=== PATIENT | female | born 1990 | race Caucasian/White ===

== ENCOUNTER 2017-10-18 09:09 | Emergency (ER) | payer OTHER ==
[~2017-10-18] VITALS: Ht 167.6 cm; Wt 91.7 kg
[~2017-10-18 09:09] MED LIST: PEDICHW50 PO
[2017-10-18 09:11] VITALS: Ht 167.6 cm; Wt 91.7 kg
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
[2017-10-18 11:16] VITALS: BP 129/88; PULSE 79; TEMP 36.9; O2SAT 98
== END 2017-10-18 11:10 | disposition home or self-care (01) ==
LOC: C.EDB 09:10
DX: S20.212A Contusion of left front wall of thorax, initial encounter (principal); S00.81XA Abrasion of other part of head, initial encounter; V47.5XXA Car driver injured in collision with fixed or stationary object in traffic accident, initial encounter

== ENCOUNTER 2018-02-25 02:58 | Emergency (ER) | payer OTHER ==
[~2018-02-25] VITALS: Ht 165.1 cm; Wt 81.8 kg
[2018-02-25 02:59] VITALS: Ht 165.1 cm; Wt 81.8 kg
[2018-02-25] MEDS ORDERED: ONDANSETRON 4MG OD TAB ONE (03:05)
[2018-02-25] MEDS ORDERED: ONDANSETRON 4MG OD TAB PO ONE (03:15)
[2018-02-25] MEDS ORDERED: ONDANSETRON HOME PACK 4MG OD TAB PO ONE (03:15)
--- NOTE | 2018-02-25 03:35 | EMERGENCY ROOM VISIT NOTE ---
History First contact with patient: 03:00 Chief Complaint: DIZZY Stated Complaint: DIZZY, LIGHT HEADED Nursing Triage Summary: dizzy lightheadedness upon site of blood History of Present Illness The patient is a 27 year old female who presents to the Emergency Room with complaints of nausea and feeling lightheaded and nearly passing out after seeing blood while at work. Patient states she is a [employer] and she was on a 1 and 1 when the nurses drawing the blood and then she got lightheaded and nearly passed out. Patient states this is happened to her before. Patient states she feels much better now besides feeling slightly nauseous. Patient denies chest pain, dyspnea, passing out, headache, neck stiffness, vomiting, diarrhea, localized weakness. No other concerns per patient. This was a work-related problem. Review of Systems An 10 system review of systems was completed with positives and pertinent negatives listed in the HPI. Past Medical/Surgical History Medical Problems: (1) 34 weeks gestation of (2) Premature uterine contractions in third trimester, antepartum (3) Twins Social History Smoking Status: Never Smoker Alcohol Use: none Drug Use: none Housing Status: lives with family Occupation Status: employed Current/Historical Medications No Active Prescriptions or Reported Meds Physical Exam Vital Signs Date Time Temp Pulse Resp B/P (MAP) Pulse Ox O2 Delivery O2 Flow Rate FiO2 02/25/18 02:59 36.6 68 18 102/80 94 Room Air Physical Exam VITALS: Vitals are noted on the nurse's note and reviewed by myself. Vital signs stable. GENERAL: Pleasant female drinking, in no acute distress, nondiaphoretic, well- developed well-nourished. SKIN: The skin was without rashes, erythema, edema, or bruising. There is no tenting of the skin. Capillary reflex less than 2 seconds. HEAD: Normocephalic atraumatic. EARS: External auditory canals clear, tympanic membranes pearly benjamin without erythema or effusion bilaterally. EYES: Pupils equal round and reactive to light and accommodation. Conjunctivae without injection, sclerae without icterus. Extraocular movements intact. NOSE: Patent, turbinates without inflammation or discharge. MOUTH: Mucous membranes moist. Pharynx without erythema or exudate. Uvula midline. Airway patent. Tongue does not deviate. NECK: Supple without nuchal rigidity. No lymphadenopathy. No thyromegaly. Cervical spine is nontender. No JVD. HEART: Regular rate and rhythm without murmurs gallops or rubs. LUNGS: Clear to auscultation bilaterally without wheezes, rales or rhonchi. No retractions or accessory muscle use. ABDOMEN: Positive bowel sounds x 4. Normal tympanic percussion. Soft, nontender, without masses or organomegaly. Hernandez sign negative. No guarding or rebound tenderness. MUSCULOSKELETAL: No muscle atrophy, erythema, or edema noted. NEURO: Patient was alert and oriented to person place and time. Normal sensation to light and sharp touch. No focal neurological deficits. Medical Decision & Procedures Medications Administered Medications (Trade) Dose Ordered Sig/Steffanie Route Start Time Stop Time Status Last Admin Dose Admin Ondansetron HCl (Zofran Odt) 4 mg ONE ONCE PO 02/25/18 03:15 02/25/18 03:16 DC 02/25/18 03:07 4 MG Ondansetron HCl (ZOFRAN ODT 4MG Home Pack) 1 homepack UD ONCE PO 02/25/18 03:15 02/25/18 03:16 DC 02/25/18 03:09 1 HOMEPACK ED Course Prior records/ancillary studies reviewed. Triage Nursing notes reviewed. Additional history obtained from nursing staff The patient's history was concerning for near syncope. Differential diagnosis: Etiologies such as vasovagal event, infection, hypoglycemia, electrolyte abnormalities, cardiac sources, intracerebral event, toxicologic, neurologic, as well as others were entertained. Physical examination: Patient is alert, oriented and well-appearing ER treatment provided: IV hydration with normal saline On reassessment the patient felt better. Diagnostics interpretation by me: Deferred This appears to be consistent with near syncope from exposure to blood most likely vagal in etiology. Patient was offered blood work and declined. I felt was reasonable. She did not pass out. This has happened to her before. She felt 100% and requested to leave. Patient was tolerating fluids and was neurovascularly and neurologically intact. She did not have acute abdomen on exam. She has stable vital signs. She is advised to rest, stay well-hydrated and follow-up family care in a few days here in the ER sooner for chest pain, difficulty breathing, passing out, worsening signs or symptoms or as needed.. By the evaluation outlined above emergent etiologies such as infection, hypoglycemia, electrolyte abnormalities, cardiac sources, intracerebral event, toxicologic, neurologic,as well as others were deemed relatively unlikely. The pt informed about the findings as listed above. All questions were answered and pleased with the treatment. Return instructions were outlined and the patient was discharged in stable condition. Outpatient prescription management: Zofran Referral: The patient was referred back to their primary care physician for follow-up in 2 to 3 days for a recheck of the current condition. The chart was completed utilizing [employer] Speech voice recognition software. Grammatical errors, random word insertions, pronoun errors, and incomplete sentences are an occassional consequence of this system due to software limitations, ambient noise, and hardware issues. Any formal questions or concerns about the content, text, or information contained within the body of this dictation should be directly addressed to the physician social research assistant for clarification. Medical Decision As above Medication Reconcilliation Current Medication List: was personally reviewed by me Blood Pressure Screening Patient's blood pressure: Normal blood pressure Impression Primary Impression: Vasovagal near syncope Additional Impression: Work related injury Departure Information Dispostion Home / Self-Care Condition GOOD Prescriptions No Active Prescriptions or Reported Meds Referrals No Doctor, Assigned (PCP) Patient Instructions [facility] Additional Instructions Zofran(odansetron) tablets 4mg: Take one and allow it to dissolve in your mouth every four to six hours as needed for nausea or vomiting. Rest and drink plenty of fluids as tolerated. Slow sips of water or sports drinks are recommended instead of large amounts all at once. Continue current medications. Return to the ER for past out, vomiting, fevers, abdominal pain, chest pains, difficulty breathing, worsening of your condition, or as needed. Follow up with your primary physician in 2-3 days for a recheck of your current condition. Problem Qualifiers
[2018-02-25 03:39] VITALS: BP 114/72; PULSE 60; TEMP 36.8; O2SAT 98
== END 2018-02-25 03:45 | disposition home or self-care (01) ==
LOC: C.EDB 02:59
DX: R55 Syncope and collapse (principal); R11.0 Nausea; R42 Dizziness and giddiness; Y99.0 Civilian activity done for income or pay

== ENCOUNTER 2018-05-25 22:48 | Emergency (ER) | payer OTHER ==
[~2018-05-25] VITALS: Ht 165.1 cm; Wt 102.9 kg
[2018-05-25 22:50] VITALS: TEMP 37.3; Ht 165.1 cm; Wt 102.9 kg
[2018-05-25] MEDS ORDERED: SODIUM CHLORIDE 0.9% 1000ML 1,000 ML IV STA (23:02)
--- NOTE | 2018-05-25 23:08 | EMERGENCY ROOM VISIT NOTE ---
History Report prepared by Gisselle: Zachery Dee Under the Supervision of: Dr. Lonnie Tejeda M.D. First contact with patient: 22:54 Chief Complaint: CARDIAC ASSESSMENT Stated Complaint: CHEST PAIN, SOB, HIGH PULSE History of Present Illness The patient is a 27 year old female who presents to the Emergency Room for evaluation of chest pain. 3 days gradually worsening chest pains. Notes today significantly short of breath with difficulty ambulating due to shob. Associated with palpitations and heart racing. Notes symptoms worse with ambulation. Symptoms worse with deep inspiration. Rest seems to makes symptoms better. Sitting up does not change pain. No leg swelling, fevers, chills, cough, nausea, vomiting, abdominal pain, back pain, urinary symptoms. Denies estrogen use, PE/DVT history, family DVT/PE history, recent travel, recent surgery. No cardiac history. Father with Afib. She has taken no medications for this. No recent URI nor gastroenteritis. Source of History: patient Onset: 3 days Position: chest Timing: worsening (gradually) Modifying Factors (Worsening): breathing (deep), other (walking) Modifying Factors (Relieving): rest Associated Symptoms: + SOB, No fevers, No chills, No cough, No nausea, No vomiting, No abdominal pain, No back pain, No urinary symptoms Note: Associated symptoms; palpitations, heart racing Review of Systems See HPI for pertinent positives & negatives. A total of 10 systems reviewed and were otherwise negative. Past Medical & Surgical Medical Problems: (1) 34 weeks gestation of (2) Premature uterine contractions in third trimester, antepartum (3) Twins Family History FHx: atrial fibrillation Social History Smoking Status: Never Smoker Alcohol Use: none Drug Use: none Housing Status: lives with family Occupation Status: employed Current/Historical Medications Scheduled Omeprazole (Omeprazole), 1 TAB PO DAILY Scheduled PRN Ibuprofen (Motrin), 600 MG PO TID PRN for Pain Ibuprofen Tab (Advil), 800 MG PO DIRECTED PRN for Pain Allergies Coded Allergies: No Known Allergies (Unverified , 05/25/18) Physical Exam Vital Signs Date Time Temp Pulse Resp B/P (MAP) Pulse Ox O2 Delivery O2 Flow Rate FiO2 05/26/18 01:54 92 20 108/72 97 Room Air 05/26/18 00:16 97 20 99/63 98 Room Air 05/25/18 23:24 Room Air 05/25/18 23:16 107 05/25/18 22:50 37.3 130 18 123/85 94 Room Air Physical Exam GENERAL: Patient is uncomfortable appearing and in mild distress. EYES: No scleral icterus, unremarkable pupils. ENT: Mucous membranes moist, no nasal congestion. NECK: No masses appreciated, no meningismus, trachea is midline. RESPIRATORY: No dyspnea. Clear to auscultation and equal bilaterally. No wheeze , no rhonchi. CARDIOVASCULAR: Tachycardic. No murmurs, rubs, gallops appreciated. GASTROINTESTINAL: Abdomen soft, nontender, no peritonitis. Bowel sounds positive. No masses appreciated. BACK: No midline tenderness, no CVA tenderness EXTREMITIES: Normal motion all extremities, no cyanosis, no edema. NEUROLOGIC: Alert and oriented, no acute motor or sensory deficits, no focal weakness, cranial nerves grossly intact. SKIN: No rash, no jaundice, no diaphoresis. Medical Decision & Procedures ER Provider Diagnostic Interpretation: Stat Rad Radiology results and stated below per my review and radiologist interpretation: CTA CHEST: No evidence of PE. Lungs are clear. No pleural effusion or pneumothorax. Heart size is normal. Aorta is unremarkable. No pericardial effusion. No significant mediastinal adenopathy. Radiologist: Kwan Erickson MD Laboratory Results 05/25/18 23:00 Red Blood Count 4.79, Mean Corpuscular Volume 82.3, Mean Corpuscular Hemoglobin 27.6, Mean Corpuscular Hemoglobin Concent 33.5, Mean Platelet Volume 11.0, Neutrophils (%) (Auto) 84.7, Lymphocytes (%) (Auto) 8.1, Monocytes (%) (Auto) 6.9, Eosinophils (%) (Auto) 0.1, Basophils (%) (Auto) 0.1, Neutrophils # (Auto) 6.85, Lymphocytes # (Auto) 0.66, Monocytes # (Auto) 0.56, Eosinophils # (Auto) 0.01, Basophils # (Auto) 0.01 05/25/18 23:00 Test 05/25/18 23:00 05/25/18 23:19 White Blood Count 8.10 K/uL (4.8-10.8) Red Blood Count 4.79 M/uL (4.2-5.4) Hemoglobin 13.2 g/dL (12.0-16.0) Hematocrit 39.4 % (37-47) Mean Corpuscular Volume 82.3 fL (80-100) Mean Corpuscular Hemoglobin 27.6 pg (25-34) Mean Corpuscular Hemoglobin Concent 33.5 g/dl (32-36) Platelet Count 211 K/uL (130-400) Mean Platelet Volume 11.0 fL (7.4-10.4) Neutrophils (%) (Auto) 84.7 % Lymphocytes (%) (Auto) 8.1 % Monocytes (%) (Auto) 6.9 % Eosinophils (%) (Auto) 0.1 % Basophils (%) (Auto) 0.1 % Neutrophils # (Auto) 6.85 K/uL (1.4-6.5) Lymphocytes # (Auto) 0.66 K/uL (1.2-3.4) Monocytes # (Auto) 0.56 K/uL (0.11-0.59) Eosinophils # (Auto) 0.01 K/uL (0-0.5) Basophils # (Auto) 0.01 K/uL (0-0.2) RDW Standard Deviation 41.7 fL (36.4-46.3) RDW Coefficient of Variation 13.8 % (11.5-14.5) Immature Granulocyte % (Auto) 0.1 % Immature Granulocyte # (Auto) 0.01 K/uL (0.00-0.02) Erythrocyte Sedimentation Rate 37 mm/hr (0-21) Est Creatinine Clear Calc Drug Dose 126.3 ml/min Estimated GFR () 117.0 Estimated GFR (Non- 100.9 BUN/Creatinine Ratio 15.0 (10-20) Calcium Level 8.8 mg/dl (8.5-10.1) Magnesium Level 2.0 mg/dl (1.8-2.4) Total Creatine Kinase 101 U/L (26-192) Creatine Kinase MB < 1.0 ng/ml (0.5-3.6) Creatine Kinase MB Ratio (0-3.0) Troponin I < 0.015 ng/ml (0-0.045) C-Reactive Protein 4.94 mg/dl (0-0.29) Thyroid Stimulating Hormone (TSH) 3.240 uIu/ml (0.300-4.500) Lyme Disease IgG Antibody NEG (NEG) Lyme Disease IgM Antibody NEG (NEG) Bedside Hemoglobin 13.3 g/dl (12.0-16.0) Bedside Hematocrit 39 % (37-47) Bedside Sodium 139 mEq/L (135-144) Bedside Potassium 3.5 mEq/L (3.3-5.0) Bedside Chloride 102 mEq/L (101-112) Bedside Total CO2 22 mEq/l (24-31) Anion Gap 19.0 mmol/L (16-25) Bedside Blood Urea Nitrogen 11 mg/dl (7-18) Bedside Creatinine 0.7 mg/dl (0.6-1.3) Bedside Glucose (other) 111 mg/dl (70-99) Bedside Ionized Calcium (Kala) 1.11 mmol/l (1.12-1.32) Laboratory results as reviewed by me. Medications Administered Medications (Trade) Dose Ordered Sig/Steffanie Route Start Time Stop Time Status Last Admin Dose Admin Sodium Chloride 1,000 ml @ 999 mls/hr Q1H1M STAT IV 05/25/18 23:02 05/26/18 00:02 DC 05/25/18 23:19 999 MLS/HR Ketorolac Tromethamine (Toradol Inj) 30 mg NOW STAT IV 05/26/18 00:22 05/26/18 00:23 DC 05/26/18 00:33 30 MG ECG Per My Interpretation Indication: chest pain Rate (beats per minute): 113 Rhythm: sinus tachycardia Findings: ST depression (Anterolateral), T-wave inversion (Anterolateral) Comparison ECG Date: no prior available ED Course 2256: The patient was evaluated in room A10. A complete history and physical exam was performed. 2328: I reevaluated the patient. Her heart rate is coming down with fluids. It is currently 107. She is going to CT. 0004: I reevaluated the patient. Her heart rate is in the 90s, and she feels better now. She is awaiting her CT results. 0113: I reevaluated the patient. She feels much better after the Toradol and fluids. Medical Decision Differential: NSR, SVT, PACs, PVCs, Cardiac Dysrhythmia, Endocrine Dysfunction, Electrolyte/Metabolic Abnormality, Pulmonary Embolism, Infectious, GI, amonst other pathologies entertained. 27 yr old female arrives for evaluation of chest pain with pleuritic shortness of breath and found to have ST depressions with some T wave inversions on EKG. No evidence of heart failure by exam. Symptoms ongoing for 3 days now. She is somewhat tachy for which IV fluids give with improvement. Trop negative thus with 3 days symptoms I feel that this is not ACS. With symptoms and EKG findings I did not feel that dimer appropriate and went with CT PE which was fortunately negative without report of pericardial effusion. She is breathing comfortably and HR improved. Toradol given with improvement in pain. EKG with improvement on repeat. She is well appearing, wants to go home and in no distress. This seems consistent with pericarditis though we discussed importance of RTED if worsening or other concerns. Stable and feels well at discharge. Aware she must follow up with PCP. Head Trauma GCS Score: 15 Medication Reconcilliation Current Medication List: was personally reviewed by me Blood Pressure Screening Patient's blood pressure: Normal blood pressure Blood pressure disposition: Did not require urgent referral Impression Primary Impression: Pericarditis Scribe Attestation The scribe's documentation has been prepared under my direction and personally reviewed by me in its entirety. I confirm that the note above accurately reflects all work, treatment, procedures, and medical decision making performed by me. Departure Information Dispostion Home / Self-Care Prescriptions Omeprazole (OMEPRAZOLE) 20 Mg Tab 1 TAB PO DAILY for 30 Days, #30 TAB 1 Refill Prov: Lonnie Tejeda M.D. 05/26/18 Ibuprofen (Motrin) 600 Mg Tab 600 MG PO TID Y for Pain for 7 Days, #21 TAB With Food Prov: Lonnie Tejeda M.D. 05/26/18 Referrals No Doctor, Assigned (PCP) Patient Instructions My [facility], Pericarditis Additional Instructions Take Motrin 3 times daily for next several days and then decrease is no further discomfort. Return if severe chest pain, difficulty breathing, passing out or other concerns. We are always here to help. It is important you follow up with your primary care provider in next several days for recheck.
[2018-05-25 23:25] LABS: BASO % 0.1 %; BASO ABS # 0.01 K/uL (0-0.2); EOS % 0.1 %; EOS ABS # 0.01 K/uL (0-0.5); HEMATOCRIT 39.4 % (37-47); HEMOGLOBIN 13.2 g/dL (12.0-16.0); IG# 0.01 K/uL (0.00-0.02); LYMPH % 8.1 %; LYMPH ABS # 0.66 K/uL (1.2-3.4); MEAN CELL VOLUME 82.3 fL (80-100); MEAN CORPUSCULAR HEMOGLOBIN 27.6 pg (25-34); MEAN CORPUSCULAR HGB CONC 33.5 g/dl (32-36); MONO % 6.9 %; MONO ABS # 0.56 K/uL (0.11-0.59); NEUT % 84.7 %; NEUT ABS # 6.85 K/uL (1.4-6.5); PLATELET COUNT 211 K/uL (130-400); RED CELL DISTRIBUTION WIDTH CV 13.8 % (11.5-14.5); RED CELL DISTRIBUTION WIDTH SD 41.7 fL (36.4-46.3)
[2018-05-25] MEDS ORDERED: OPTIRAY 320 IV PRN (23:30)
[2018-05-25 23:33] LABS: ISTAT CREATININE 0.7 mg/dl (0.6-1.3); ISTAT IONIZED CALCIUM 1.11 mmol/l (1.12-1.32); ISTAT POTASSIUM 3.5 mEq/L (3.3-5.0)
[2018-05-25] MEDS ORDERED: IBUP-103 PO (23:44)
[2018-05-25 23:53] LABS: BLOOD UREA NITROGEN 12 mg/dl (7-18); CALCIUM 8.8 mg/dl (8.5-10.1); CARBON DIOXIDE 23 mmol/L (21-32); CKMB < 1.0 ng/ml (0.5-3.6); CREATININE 0.81 mg/dl (0.60-1.20); GLUCOSE 103 mg/dl (70-99); POTASSIUM 3.5 mmol/L (3.5-5.1); SODIUM 136 mmol/L (136-145)
[2018-05-26] MEDS ORDERED: KETOROLAC TROMETHAMINE 30 MG/ML VIAL IV STA (00:22)
[2018-05-26] MEDS ORDERED: IBUP600T44 PO (01:26)
[2018-05-26] MEDS ORDERED: OMEP20TA PO (01:26)
[2018-05-26 01:54] VITALS: BP 108/72; PULSE 92; O2SAT 97
--- NOTE | 2018-05-26 07:49 | DIAGNOSTIC IMAGING REPORT ---
CT ANGIOGRAPHY OF THE CHEST, PULMONARY EMBOLUS PROTOCOL CLINICAL HISTORY: Chest pain, shortness of breath and tachycardia. COMPARISON STUDY: Chest radiograph October 18, 2017. TECHNIQUE: Following IV administration of 92 mL of [id number]-[id number], helical axial images of the chest were obtained utilizing the pulmonary embolus protocol. Maximal intensity projections and sagittal and coronal reformats were viewed on an independent 3D workstation. IV contrast was administered without complication. A dose lowering technique was utilized adhering to the principles of ALARA. CT DOSE: 626.91 mGy.cm FINDINGS: No pulmonary emboli are identified. There is no evidence of thoracic aortic dissection. The size of the heart is at the upper limits of normal. There is no pericardial effusion. There are no enlarged thoracic lymph nodes. Central airways are patent. There is no consolidation. No pneumothorax or pleural effusion is noted. Bony thorax is unremarkable. Borderline splenomegaly is noted. IMPRESSION: 1. No pulmonary emboli identified. 2. No acute intrathoracic findings. Electronically signed by: Scott Chandler M.D. 05/26/2018 7:48 AM Dictated Date/Time: 05/26/2018 7:42 AM
== END 2018-05-26 02:04 | disposition home or self-care (01) ==
LOC: C.EDB 22:49 → C.EDA 05-26 02:04
DX: I31.9 Disease of pericardium, unspecified (principal); R00.0 Tachycardia, unspecified; Z82.49 Family history of ischemic heart disease and other diseases of the circulatory system